=== PATIENT | female | born 2000 | race Caucasian/White ===

== ENCOUNTER 2024-01-20 15:10 | Emergency (ER) | payer OTHER, SELFPAY ==
[2024-01-20 15:15] VITALS: BP 112/74; PULSE 84; RESP 18; TEMP 36.3; O2SAT 97; BMI 23.5
== END 2024-01-20 16:38 | disposition left against medical advice (07) ==
PROVIDERS: Emergency Provider Emergency Medicine
DX: R53.83 Other fatigue (principal); R11.0 Nausea; R55 Syncope and collapse
CPT/HCPCS: 81003; 81025; 99282